=== PATIENT | female | born 1980 | race Caucasian/White ===

== ENCOUNTER 2018-02-11 01:15 | Observation (INO) | payer OTHER ==
[~2018-02-11] VITALS: Ht 154.9 cm; Wt 61.4 kg
[2018-02-11 01:34] VITALS: BP 130/87
[2018-02-11] MEDS ORDERED: PREN1TAB80 PO (03:04)
== END 2018-02-11 02:55 | disposition home or self-care (01) ==
LOC: 4S 01:15
PROVIDERS: ADMIT Obstetrics & Gynecology; ATTEND Obstetrics & Gynecology
DX: O62.9 Abnormality of forces of labor, unspecified (principal); O09.523 Supervision of elderly multigravida, third trimester; Z3A.38 38 weeks gestation of pregnancy
CPT/HCPCS: 81002; G0378

== ENCOUNTER 2018-02-15 10:10 | Inpatient (IN) | payer OTHER ==
[~2018-02-15] VITALS: Ht 152.4 cm; Wt 61.2 kg
[~2018-02-15 10:10] MED LIST: PREN1TAB80 PO
[2018-02-15] MEDS ORDERED: RINGERS SOLUTION,LACTATED 1,000 ML IV ONE (10:16)
[2018-02-15] MEDS ORDERED: CITRIC ACID/SODIUM CITRATE 30 ML SOLUTION UDCUP PO ONE (10:30)
[2018-02-15] MEDS ORDERED: CeFAZolin 2 GM/DEXTROSE 50 ML IV ONE (10:30)
[2018-02-15] MEDS ORDERED: METOCLOPRAMIDE HCL 5 MG/ML 2 ML VIAL IVP ONE (10:30)
[2018-02-15 10:57] LABS: BASOPHILS % (AUTO) 0.4 % (0.0-2.0); EOSINOPHILS % (AUTO) 0.3 % (1.0-6.0); HEMATOCRIT 38.2 % (36-46); HEMOGLOBIN 13.4 g/dL (12.0-16.0); LYMPHOCYTES # (AUTO) 2.3 K/uL (1.0-4.8); MEAN CORPUSCULAR HEMOGLOBIN 33.3 pg (26.0-34.0); MEAN CORPUSCULAR VOLUME 95 fL (80-100); MONOCYTES # (AUTO) 0.5 K/uL (0.1-1.0); MONOCYTES % (AUTO) 5.4 % (2.0-9.0); NEUTROPHILS # (AUTO) 5.7 K/uL (1.8-7.7); NEUTROPHILS % (AUTO) 66.9 % (40.0-70.0); PLATELET COUNT (AUTO) 248 K/uL (150-450); RED BLOOD CELL COUNT(AUTO) 4.02 MIL/uL (4.00-5.20)
[2018-02-15 11:39] VITALS: BP 128/85
[2018-02-15] MEDS ORDERED: MORPHINE SULFATE/PF 0.5 MG/ML 10 ML AMP ONE (11:45)
[2018-02-15] MEDS ORDERED: ACETAMINOPHEN 1000 MG/ISO-OSM 100 ML IV ONE (11:45)
[2018-02-15] MEDS ORDERED: BUPIVACAINE HCL/DEX-WATER/PF 0.75% 2 ML AMP ONE (11:45)
[2018-02-15] MEDS ORDERED: FentaNYL CITRATE-PF 100 MCG/2 ML VIAL ONE (11:45)
[2018-02-15] MEDS ORDERED: EPHEDrine SULFATE 50 MG/ML VIAL IM ONE (12:00)
[2018-02-15] MEDS ORDERED: 0.9% SODIUM CHLORIDE 10 ML VIAL IVP ONE (12:00)
[2018-02-15] MEDS ORDERED: OXYTOCIN 10 UNITS/ML VIAL IM ONE (12:00)
[2018-02-15] MEDS ORDERED: MORPHINE SULFATE 10 MG/ML SYRINGE IVP PRN (12:30)
[2018-02-15] MEDS ORDERED: NALBUPHINE HCL 10 MG/ML VIAL IVP PRN ×3 (12:30)
[2018-02-15] MEDS ORDERED: ONDANSETRON HCL 4 MG/2 ML VIAL IVP PRN ×2 (12:30)
[2018-02-15] MEDS ORDERED: FentaNYL CITRATE-PF 100 MCG/2 ML VIAL IVP PRN (12:30)
[2018-02-15] MEDS ORDERED: DiphenhydrAMINE HCL 50 MG/ML VIAL IVP PRN ×2 (12:30)
[2018-02-15] MEDS ORDERED: NALOXONE HCL 0.4 MG/ML VIAL IVP PRN (12:30)
[2018-02-15] MEDS ORDERED: DEXAMETHASONE SOD PHOS 4 MG/ML VIAL IVP PRN (12:30)
[2018-02-15] MEDS ORDERED: LANOLIN 7 GM OINTMENT TP PRN (16:00)
[2018-02-15] MEDS ORDERED: OxyCODONE HCL/ACETAMINOPHEN 5-325 MG TABLET PO PRN (16:00)
[2018-02-15] MEDS: RINGERS SOLUTION,LACTATED 1,000 ML IV SCH (19:18)
[2018-02-15] MEDS ORDERED: OXYGEN THERAPY IH SCH ×3 (20:00)
[2018-02-15] MEDS: ACETAMINOPHEN 1000 MG/ISO-OSM 100 ML IV SCH (20:33)
[2018-02-15] MEDS: MAGNESIUM HYDROXIDE SUSPENSION 30 ML UDCUP PO SCH (21:47)
[2018-02-16] MEDS: RINGERS SOLUTION,LACTATED 1,000 ML IV SCH (02:03)
[2018-02-16] MEDS ORDERED: ACETAMINOPHEN 1000 MG/ISO-OSM 100 ML IV ONE (03:13)
[2018-02-16] MEDS: ACETAMINOPHEN 1000 MG/ISO-OSM 100 ML IV SCH (04:21)
[2018-02-16 06:58] LABS: BASOPHILS % (AUTO) 0.3 % (0.0-2.0); EOSINOPHILS % (AUTO) 0.1 % (1.0-6.0); HEMATOCRIT 34.8 % (36-46); HEMOGLOBIN 12.2 g/dL (12.0-16.0); LYMPHOCYTES # (AUTO) 2.1 K/uL (1.0-4.8); MEAN CORPUSCULAR HEMOGLOBIN 33.9 pg (26.0-34.0); MEAN CORPUSCULAR HGB CONC 35.1 G/dL (31.0-37.0); MEAN CORPUSCULAR VOLUME 97 fL (80-100); MONOCYTES # (AUTO) 0.6 K/uL (0.1-1.0); MONOCYTES % (AUTO) 5.6 % (2.0-9.0); PLATELET COUNT (AUTO)-OB 206 K/uL (150-450); RED CELL DISTRIBUTION WIDTH 13.1 % (11.5-14.5)
[2018-02-16] MEDS: MAGNESIUM HYDROXIDE SUSPENSION 30 ML UDCUP PO SCH ×2 (09:53→21:08)
[2018-02-16] MEDS: OxyCODONE HCL/ACETAMINOPHEN 5-325 MG TABLET PO PRN ×2 (11:53→17:55)
[2018-02-16] MEDS: IBUPROFEN 800 MG TABLET PO PRN (21:09)
[2018-02-17] MEDS: MAGNESIUM HYDROXIDE SUSPENSION 30 ML UDCUP PO SCH (09:27)
[2018-02-17] MEDS ORDERED: IBUP-2071 PO (10:55)
[2018-02-17] MEDS ORDERED: DSS100 PO (10:57)
[2018-02-17] MEDS ORDERED: PERCT PO (10:59)
[2018-02-17] MEDS: IBUPROFEN 800 MG TABLET PO PRN (11:25)
== END 2018-02-17 13:10 | disposition home or self-care (01) | DRG 785 ==
LOC: OBSVTOIN 10:10 → 4S 10:10
PROVIDERS: ADMIT Obstetrics & Gynecology; ATTEND Obstetrics & Gynecology
PROC: 10D00Z1 Extraction of Products of Conception, Low, Open Approach (ICD-10-PCS; principal; 2018-02-15)
PROC: 0UB70ZZ Excision of Bilateral Fallopian Tubes, Open Approach (ICD-10-PCS; 2018-02-15)
DX: O34.211 Maternal care for low transverse scar from previous cesarean delivery (principal); Z3A.39 39 weeks gestation of pregnancy; Z37.0 Single live birth
CPT/HCPCS: 86850; 86900; 86901; 87081; 88302; J0131; J0690; J2274; J2590; J2765; J3010; J3490; J7120